=== PATIENT | male | born 1940 | race Caucasian/White ===

== ENCOUNTER → 2017-05-20 | Outpatient (CLI) | payer OTHER, BC ==
[~2017-05-20] MED LIST: ALT5 PO; AMLO-114 PO; ASCA500 PO; ASPCH81 PO; ATOR10TA88 PO; FRRG27 PO; METO50TA7 PO; OMEG10007 PO
[2017-05-20 12:39] LABS: ESTIMATED AVERAGE GLUCOSE 126 mg/dl; HA1C FLAG Normal (Normal)
[2017-05-20 12:46] LABS: BLOOD UREA NITROGEN 18 mg/dl (7-18); BUN/CREATININE RATIO 13.6 (10-20); CALCIUM 9.3 mg/dl (8.5-10.1); CARBON DIOXIDE 30 mmol/L (21-32); CHLORIDE 104 mmol/L (98-107); CHOLESTEROL 109 mg/dl (0-200); GLUCOSE 92 mg/dl (70-99); POTASSIUM 3.8 mmol/L (3.5-5.1); SODIUM 139 mmol/L (136-145); TRIGLYCERIDES 149 mg/dl (0-150); VERY LOW DENSITY LIPOPROT CALC 30 mg/dl
[2017-05-20 12:52] LABS: ALKALINE PHOSPHATASE 76 U/L (45-117); ALT/SGPT 24 U/L (12-78); AST/SGOT 18 U/L (15-37); CHOLESTEROL/HDL RATIO 2.9; HDL CHOLESTEROL 37 mg/dl; LDL CHOLESTEROL CALCULATED 42 mg/dl
== END | disposition home or self-care (01) ==
LOC: C.LAB 10:00
PROVIDERS: ATTEND Family Medicine
DX: E78.00 Pure hypercholesterolemia, unspecified (principal); I10 Essential (primary) hypertension; I25.10 Atherosclerotic heart disease of native coronary artery without angina pectoris; R73.03 Prediabetes

== ENCOUNTER → 2017-11-04 | Day surgery (SDC) | payer OTHER, BC ==
[2017-10-26 08:22] VITALS: Ht 177.8 cm; Wt 90.0 kg
[~2017-11-04] VITALS: Ht 177.8 cm; Wt 90.0 kg
[~2017-11-04] MED LIST changes: -ALT5 PO; -ASCA500 PO; -ASPCH81 PO; +ASPCH81X PO; +ATOR-24 PO; -ATOR10TA88 PO; -FRRG27 PO; +HYDR25TA4 PO; +LIDOCAINE HCL 2% 2 ML VIAL (20MG/ML) ONE; +METO25TA56 PO; -METO50TA7 PO; +MULT-1093 PO; +PROPOFOL IV EMULSION 10 MG/ML 20 ML VIAL IV ONE; +RAMI10CA PO; +SODIUM CHLORIDE 0.9% 500ML 500 ML IV ONE
--- NOTE | 2017-11-04 13:20 | Endo History and Physical ---
History & Physical Date of Service: Nov 04, 2017. Chief Complaint: screen, h/o polyps Referring Physician: Dr. Camara History of Present Illness 77 yo CM who presents for colonoscopy secondary to history of colon polyps. Past Surgical History Hx Cardiac Surgery: Yes (HEART CATH-1 STENT PLACED) Hx Internal Defibrillator: No Hx Pacemaker: No Hx Abdominal Surgery: No Hx of Implantable Prosthesis: No Hx Post-Op Nausea and Vomiting: No Hx Cancer Surgery: No Hx Thoracic Surgery: No Hx Orthopedic: No Hx Urinary Tract Surgery: No Family History Polyp Social History Smoking Status: Never Smoker Hx Substance Use: No Hx Alcohol Use: Yes (1 SMALL GLASS WINE DAILY) Allergies Coded Allergies: No Known Allergies (Verified , 11/04/17) Current Medications Reported Home Medications Medications Dose Route/Sig Max Daily Dose Days Date Category Centrum Silver 50+Men (Multiple Vitamins W/ Minerals) 1 Tab Tab 1 Tab PO QAM 10/26/17 Reported Perry-3 (Fish Oil) 1 Ea Cap 1 Cap PO QAM 10/26/17 Reported Aspirin Chewable (Aspirin) 81 Mg Chew 81 Mg PO QAM 10/26/17 Reported Lipitor (Atorvastatin Calcium) 40 Mg Tab 40 Mg PO QPM 10/26/17 Reported Hctz (Hydrochlorothiazide) 25 Mg Tab 25 Mg PO QAM 10/26/17 Reported Lopressor (Metoprolol Tartrate) 25 Mg Tab 25 Mg PO BID 10/26/17 Reported Ramipril 10 Mg Cap 1 Cap PO BID 10/26/17 Reported Norvasc (Amlodipine Besylate) 10 Mg Tab 10 Mg PO QAM 10/26/17 Reported Vital Signs Weight (Kilograms): 90 Height (Feet): 5 Height (Inches): 10 Date Time Temp Pulse Resp B/P (MAP) Pulse Ox O2 Delivery O2 Flow Rate FiO2 11/04/17 13:17 36.5 65 16 139/89 (106) 95 Room Air Physical Exam General Appearance: WD/WN, no apparent distress Respiratory/Chest: Auscultation: breath sounds normal Cardiovascular: Heart Auscultation: RRR Abdomen: Bowel Sounds: normal Inspection & Palpation: soft, non-distended, no tenderness, guarding & rebound Assessment and Plan Assessment: 77 yo CM who presents for colonoscopy secondary to history of colon polyps. Plan: Proceed with colonoscopy.
--- NOTE | 2017-11-04 13:58 | Discharge Instructions ---
Endoscopy Patient Instructions Date / Procedure(s) Performed Nov 04, 2017. Colonoscopy Allergy Information Coded Allergies: No Known Allergies (Verified , 11/04/17) Discharge Date / Findings Nov 04, 2017. Internal hemorrhoids Medication Instructions Stopped Medication(s): All meds stopped 11/03/17. OK to resume all medications today as prescribed Reported Home Medications Medications Dose Route/Sig Max Daily Dose Days Date Category Centrum Silver 50+Men (Multiple Vitamins W/ Minerals) 1 Tab Tab 1 Tab PO QAM 10/26/17 Reported Captiva-3 (Fish Oil) 1 Ea Cap 1 Cap PO QAM 10/26/17 Reported Aspirin Chewable (Aspirin) 81 Mg Chew 81 Mg PO QAM 10/26/17 Reported Lipitor (Atorvastatin Calcium) 40 Mg Tab 40 Mg PO QPM 10/26/17 Reported Hctz (Hydrochlorothiazide) 25 Mg Tab 25 Mg PO QAM 10/26/17 Reported Lopressor (Metoprolol Tartrate) 25 Mg Tab 25 Mg PO BID 10/26/17 Reported Ramipril 10 Mg Cap 1 Cap PO BID 10/26/17 Reported Norvasc (Amlodipine Besylate) 10 Mg Tab 10 Mg PO QAM 10/26/17 Reported Provider Instructions Activity Restrictions - No exercising or heavy lifting for 24 hours. - Do not drink alcohol the day of the procedure. - Do not drive a car or operate machinery until the day after the procedure. - Do not make any important decisions or sign important papers in 24 hours after the procedure. Following Day: - Return to full activity which may include returning to work/school. Diet Start your diet with liquids and light foods (jello, soup, juice, toast). Then eat your usual diet if not nauseated. Treatment For Common After Affects For mild abdominal pain, bloating, or excessive gas: - Rest - Eat lightly - Lie on right side Follow-Up Information Follow-up with Dr. Camara as scheduled Anesthesia Information What You Should Know You have had a procedure that required some medicine to reduce anxiety and discomfort. This treatment is called moderate sedation. After receiving the treatment, you may be sleepy, but you will be able to breathe on your own. The effects of the treatment may last for several hours. Follow these instructions along with Activity/Diet recommendations noted above: * Do NOT do anything where dizziness or clumsiness would be dangerous. * Rest quietly at home today, then you can be up and about tomorrow. * Have a responsible person stay with you the rest of today. * You may have had an I.V. today. If so, you may take the dressing off later today. Recommendations Call your doctor if: * Trouble breathing * Continuous vomiting for more than 24 hours * Temperature above 101 degrees * Severe abdominal pain or bloating * Pain not relieved by pain medicine ordered * There is increased drainage or redness from any incision * A large amount of rectal bleeding greater than 2-3 tablespoons. (If you had a polyp/s removed or have hemorrhoids, a small amount of blood - from the rectum is to be expected.) * You have any unanswered questions or concerns. IN THE EVENT OF A SERIOUS EMERGENCY, GO TO THE NEAREST EMERGENCY ROOM Your discharge instructions were prepared by provider Dar Jennings. Patient Instructions Signature Page Prem Orantes Patient (or Guardian) Signature/Date: I have read and understand the instructions given to me by my caregivers. Caregiver/RN/Doctor Signature/Date: The above-named patient and/or guardian has received patient instructions on this date. + Original Patient Signature Page (only) stays with chart. Please make copy for patient.
--- NOTE | 2017-11-04 14:10 | GI REPORT ---
Procedure Date: 11/04/2017 1:38 PM Procedure: Colonoscopy Indications: High risk colon cancer surveillance: Personal history of colonic polyps Medicines: Monitored Anesthesia Care Complications: No immediate complications. Estimated Blood Loss: Estimated blood loss: none. Procedure: Pre-Anesthesia Assessment: - Prior to the procedure, a History and Physical was performed, and patient medications and allergies were reviewed. The patient's tolerance of previous anesthesia was also reviewed. The risks and benefits of the procedure and the sedation options and risks were discussed with the patient. All questions were answered, and informed consent was obtained. Prior Anticoagulants: The patient has taken no previous anticoagulant or antiplatelet agents. ASA Grade Assessment: II - A patient with mild systemic disease. After reviewing the risks and benefits, the patient was deemed in satisfactory condition to undergo the procedure. After I obtained informed consent, the scope was passed under direct vision. Throughout the procedure, the patient's blood pressure, pulse, and oxygen saturations were monitored continuously. The scope was introduced through the anus and advanced to the terminal ileum. The colonoscopy was performed without difficulty. The patient tolerated the procedure well. The quality of the bowel preparation was good. The terminal ileum, ileocecal valve, appendiceal orifice, and rectum were photographed. Findings: The perianal and digital rectal examinations were normal. Non-bleeding internal hemorrhoids were found during retroflexion. The hemorrhoids were small. Impression: - Non-bleeding internal hemorrhoids. - No specimens collected. Recommendation: - Resume previous diet. - Continue present medications. - No repeat colonoscopy due to age and the absence of advanced adenomas. - Return to primary care physician as previously scheduled. Dar Jennings, 11/04/2017 2:09:59 PM This report has been signed electronically. Note Initiated On: 11/04/2017 1:38 PM I attest to the content of the Intraoperative Record and orders documented therein, exceptions below
[2017-11-04 14:28] VITALS: BP 124/76; PULSE 58; O2SAT 96
--- NOTE | 2017-11-04 14:38 | Anesthesiology Progress Note ---
Anesthesia Post Op Note Date & Time Nov 04, 2017 at 14:38 Vital Signs Pain Intensity: 0 Vital Signs Past 12 Hours Date Time Temp Pulse Resp B/P (MAP) Pulse Ox O2 Delivery O2 Flow Rate FiO2 11/04/17 14:28 58 18 124/76 (92) 96 Room Air 11/04/17 14:16 61 16 126/83 (97) 95 Room Air 11/04/17 14:01 58 20 107/71 (83) 96 Room Air 11/04/17 13:17 36.5 65 16 139/89 (106) 95 Room Air Notes Mental Status: alert / awake / arousable, participated in evaluation Pt Amnestic to Procedure: Yes Nausea / Vomiting: adequately controlled Pain: adequately controlled Airway Patency, RR, SpO2: stable & adequate BP & HR: stable & adequate Hydration State: stable & adequate Anesthetic Complications: no major complications apparent
== END | disposition home or self-care (01) ==
LOC: C.GI 12:41
PROVIDERS: ATTEND Internal Medicine
DX: Z12.11 Encounter for screening for malignant neoplasm of colon (principal); Z86.010 Personal history of colon polyps; K64.8 Other hemorrhoids; Z95.5 Presence of coronary angioplasty implant and graft; Z79.82 Long term (current) use of aspirin; Z79.899 Other long term (current) drug therapy

== ENCOUNTER → 2017-11-27 | Outpatient (CLI) | payer OTHER, BC ==
[~2017-11-27] MED LIST changes: -AMLO-114 PO; +AMLO10TA3 PO; -LIDOCAINE HCL 2% 2 ML VIAL (20MG/ML) ONE; -PROPOFOL IV EMULSION 10 MG/ML 20 ML VIAL IV ONE; -SODIUM CHLORIDE 0.9% 500ML 500 ML IV ONE
[2017-11-27 10:25] LABS: HEMOGLOBIN A1C 5.9 % (4.5-5.6)
[2017-11-27 10:47] LABS: BLOOD UREA NITROGEN 27 mg/dl (7-18); CREATININE 1.55 mg/dl (0.60-1.40); GLUCOSE 99 mg/dl (70-99)
[2017-11-27 10:48] LABS: ALBUMIN 3.9 gm/dl (3.4-5.0); ALT/SGPT 31 U/L (12-78); AST/SGOT 20 U/L (15-37); CALCIUM 9.3 mg/dl (8.5-10.1); CARBON DIOXIDE 32 mmol/L (21-32); POTASSIUM 3.8 mmol/L (3.5-5.1); SODIUM 138 mmol/L (136-145)
[2017-11-27 10:51] LABS: ALKALINE PHOSPHATASE 72 U/L (45-117); CHOLESTEROL 143 mg/dl (0-200); LDL CHOLESTEROL CALCULATED 59 mg/dl
== END | disposition home or self-care (01) ==
LOC: C.LAB 09:21
PROVIDERS: ATTEND Neuromusculoskeletal Medicine & OMM
DX: Z00.00 Encounter for general adult medical examination without abnormal findings (principal); E78.00 Pure hypercholesterolemia, unspecified; I10 Essential (primary) hypertension; R73.03 Prediabetes

== ENCOUNTER → 2018-01-29 | Outpatient (CLI) | payer OTHER, BC ==
[~2018-01-29] MED LIST changes: +AMLO-114 PO; -AMLO10TA3 PO
[2018-01-29 12:37] LABS: BLOOD UREA NITROGEN 24 mg/dl (7-18); CALCIUM 9.6 mg/dl (8.5-10.1); CARBON DIOXIDE 32 mmol/L (21-32); CREATININE 1.41 mg/dl (0.60-1.40); GLUCOSE 96 mg/dl (70-99); SODIUM 137 mmol/L (136-145)
== END | disposition home or self-care (01) ==
LOC: C.LAB 10:10
PROVIDERS: ATTEND Neuromusculoskeletal Medicine & OMM
DX: N18.3 Chronic kidney disease, stage 3 (moderate) (principal)

== ENCOUNTER 2025-01-16 04:59 | Observation (INO) ==
--- NOTE | 2024-12-15 10:42 | PAT Medication Instructions ---
Medication Instructions Date of Service December 15, 2024 Home Medications Medication Instructions Recorded CPAP Machine See Rx Instructions .Route 02/13/21 .COMPLEX #1 ea ramipril 10 mg capsule 10 mg PO BID #180 caps 10/28/23 atorvastatin 40 mg tablet 40 mg PO HS #90 tabs 12/09/23 amlodipine 5 mg tablet 5 mg PO QAM #90 tabs 03/09/24 epinephrine 0.3 mg/0.3 mL 0.3 mg (0.3 mL) IM ONCE PRN 03/14/24 injection, auto-injector anaphylaxis #2 ea nitroglycerin 0.4 mg sublingual 0.4 mg sublingual Q5M PRN chest 03/14/24 tablet pain #25 tabs hydrochlorothiazide 25 mg tablet 25 mg PO QAM #90 tabs 09/21/24 metoprolol tartrate 25 mg tablet 25 mg PO BID #180 tabs 09/29/24 Medication List: omega-3 fatty acids 1,200 mg PO BID ramipril 10 mg capsule 10 mg PO BID atorvastatin 40 mg tablet 40 mg PO HS aspirin 81 mg tablet,delayed release (Juliette Low Dose Aspirin) 81 mg PO QAM amlodipine 5 mg tablet 5 mg PO QAM epinephrine 0.3 mg/0.3 mL injection, auto-injector 0.3 mg (0.3 mL) IM ONCE PRN anaphylaxis nitroglycerin 0.4 mg sublingual tablet 0.4 mg sublingual Q5M PRN chest pain hydrochlorothiazide 25 mg tablet 25 mg PO QAM metoprolol tartrate 25 mg tablet 25 mg PO BID amoxicillin 500 mg tablet 2,000 mg PO ONCE PRN prior to dental procedures itvevykttnch-vnqlowas-opwvpj tablet 1 tab PO QAM MEDICATION INSTRUCTIONS: Continue as directed amoxicillin 500 mg tablet 2,000 mg PO ONCE PRN prior to dental procedures epinephrine 0.3 mg/0.3 mL injection, auto-injector 0.3 mg (0.3 mL) IM ONCE PRN anaphylaxis nitroglycerin 0.4 mg sublingual tablet 0.4 mg sublingual Q5M PRN chest pain ASK your prescriber and surgeon aspirin 81 mg tablet,delayed release (Juliette Low Dose Aspirin) 81 mg PO QAM STOP taking 2 weeks before surgery omega-3 fatty acids 1,200 mg PO BID DO NOT take the morning of surgery hydrochlorothiazide 25 mg tablet 25 mg PO QAM xgniqsblluho-aoceaiuf-evyxdo tablet 1 tab PO QAM ramipril 10 mg capsule 10 mg PO BID Take morning of surgery With a small sip of water, OTHERWISE NOTHING TO EAT OR DRINK AFTER MIDNIGHT: metoprolol tartrate 25 mg tablet 25 mg PO BID amlodipine 5 mg tablet 5 mg PO QAM Take evening before surgery metoprolol tartrate 25 mg tablet 25 mg PO BID atorvastatin 40 mg tablet 40 mg PO HS ramipril 10 mg capsule 10 mg PO BID Other Notes If you have any questions please call us at [phone] or [phone] or [phone] or [phone]
--- NOTE | 2024-12-26 09:16 | Anesthesiology Consultation ---
Date of Service December 26, 2024 Assessment & Plan (1) Encounter for pre-operative examination: - Infectious disease screening: Per assessment on 12/26/24- No known recent infectious disease contacts or current infectious disease symptoms. - Outpatient joint assessment: Pt currently scheduled for inpatient pathway. If surgeon requests review for outpatient joint pathway, patient is not recommended candidate for outpatient joint program from anesthesia standpoint based on available information. - Cardiology visit (02/25/24): "CAD status post LAD PCI: No angina. Euvolemic. Continue aspirin 81 mg daily indefinitely, given prior PCI. Continue beta- yasmin. Continue high-intensity statin therapy. 911 for angina that does not resolve within 5 minutes of nitroglycerin. CBC periodically while on anti- platelet therapy.. Blood pressure higher today than usual. Blood pressure typically very well-controlled. Continue current regimen. Encouraged checking blood pressure periodically at home and calling for higher than usual values.. Dyslipidemia: Continue high-intensity statin therapy. Excellent LDL. Repeat labs in 6 months.. Paroxysmal atrial tachycardia: Asymptomatic. In the past, [facility] discharge summary reported paroxysmal atrial tachycardia. Initially it was thought to be atrial fibrillation but after further review by hemmer chainstitch at [facility] [place], atrial tachycardia was diagnosed. Sotalol was used briefly. Continue metoprolol.. Borderline dilated ascending aorta: His ascending aorta was within expected limits for age adjusted BSA. Stable findings on 2022 echo. Can monitor periodically but annual surveillance is not necessary given that he consistently has been within expected limits for age adjusted BSA." - PCP/wellness visit (10/31/24): "1. Medicare wellness: No major issues at this time. Metabolic screening reviewed, unremarkable. See repeat orders. Follow- up in 6 months for regular checkup, 1 year for Medicare wellness.. Pre diabetes: Patient advised to follow a carbohydrate restricted diet with limitations on simple sugars and refined carbohydrates in addition to increasing dietary intake of lean proteins and mild to moderate intake of whole grains. No change in A1c. Pharmacotherapy not indicated at this time.. Severe sleep apnea with hypoxemia: On CPAP, managed by Sleep Medicine.. Hypercholesterolemia: Continue atorvastatin and fish oil. See dietary recommendations above.. Hypertension: Currently at goal. Continue amlodipine, hydrochlorothiazide, metoprolol, and ramipril. Otherwise maintain current regimen.. Stage 3 chronic kidney disease: Renal function currently at baseline, no issues at this time.. 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 - Anemia: Preop labs note hgb at 11.9. Comparison labs from 10/31/24 with hgb at 14.2. Note written to PCP regarding anemia- Awaiting response. Patient otherwise acceptable risk for surgery. Chart Review Chart Review: Patient seen in Pre Admission Testing Teaching & Discussion Pre-Anesthesia Teaching/Discussion Notes: Instructed NPO after midnight before surgery,except medications with 15 cc of water. Medication instructions provided according to the PAT guidelines. History Surgery Operation Date: 01/16/25 08:50 Proposed Procedures p Right Unicompartmental Knee Vs - Kody Lorenz MD s Total Knee Arthroplasty - Kody Lorenz MD Height/Weight Height: 5 ft 9 in Weight: 99.5 kg Allergies Allergy/AdvReac Type Severity Reaction Status Date / Time bee venom protein (honey bee) Allergy Severe Anaphylaxis Verified 12/13/24 15:34 hornet venom Allergy Severe Anaphylaxis Verified 12/13/24 15:34 No Known Drug Allergies Allergy Verified 12/13/24 15:34 Medications Home Medications Medication Instructions Recorded Confirmed Last Taken CPAP Machine See Rx Instructions .Route 02/13/21 11/10/24 08/16/23 20:00 .COMPLEX #1 ea omega-3 fatty acids 1,200 mg PO BID 08/03/23 12/13/24 08/03/23 aspirin 81 mg tablet,delayed 81 mg PO QAM 01/25/24 12/13/24 Unknown release (Juliette Low Dose Aspirin) amlodipine 5 mg tablet 5 mg PO QAM #90 tabs 03/09/24 12/13/24 Unknown epinephrine 0.3 mg/0.3 mL 0.3 mg (0.3 mL) IM ONCE PRN 03/14/24 12/13/24 Unknown injection, auto-injector anaphylaxis #2 ea nitroglycerin 0.4 mg sublingual 0.4 mg sublingual Q5M PRN chest 03/14/24 12/13/24 Unknown tablet pain #25 tabs hydrochlorothiazide 25 mg tablet 25 mg PO QAM #90 tabs 09/21/24 12/13/24 Unknown metoprolol tartrate 25 mg tablet 25 mg PO BID #180 tabs 09/29/24 12/13/24 Unknown amoxicillin 500 mg tablet 2,000 mg PO ONCE PRN prior to 12/13/24 12/13/24 Unknown dental proceures mhidyahnqqzo-ekrpgxkt-uxkvqn tablet 1 tab PO QAM 12/13/24 12/13/24 Unknown ramipril 10 mg capsule 10 mg PO BID #180 caps 12/20/24 Unknown atorvastatin 40 mg tablet 40 mg PO HS #90 tabs 12/24/24 Unknown Past Medical History Medical History CAD (coronary artery disease) s/p BMS to LAD 2010 Hypercholesterolemia Hypertension Nocturnal hypoxemia Per records Osteoarthritis Paroxysmal atrial tachycardia Asymptomatic- on metoprolol Follows with [facility] Pre-diabetes Diet controlled Seborrheic keratosis Sleep apnea CPAP (compliant) Stage 3 chronic kidney disease Exercise / Class Metabolic Activity II 4-5 Yardwork/Stairs/Walk up hill (one FS: No CP, no SOB) Past Family History Family History Father Acute myocardial infarction Myocardial infarction Mother Diabetes Acute myocardial infarction Kidney disease Stroke Grandmother Breast cancer Brother Lung cancer Sister Cancer Other No family history of adverse response to anesthesia Denies family history of Ovarian cancer Prostate cancer Colorectal cancer Past Surgical History Surgical History H/O colonoscopy History of cardiac cath BMS to LAD 2010 History of intravascular stent placement BMS to LAD 2010 History of tonsillectomy and adenoidectomy S/P cataract surgery Status post left partial knee replacement Past Anesthesia History No Hx of Anesthesia Complications and No Family Hx of Anesthesia Complications History of PONV No Hx of PONV and No Hx of Motion Sickness Social History Smoking Status: Never smoker Do You Dip or Chew Tobacco: No Hx Alcohol Use: Yes (1 glass of wine a week) Alcohol type: beer and wine alcohol intake frequency: a few times a month Hx Substance Use: No substance use type: does not use Review of Systems Patient denies chest pain, shortness of breath, dyspnea on exertion, fever, chills, cough, wheezing, palpitations. Physical Exam Vital Signs BP 103/67 P 54 TEMP 97.7 SP02 97%RA RESP 18 Physical Decreased cervical extension range of motion. Full TMJ range of motion. TMD > 3.5 finger breaths Mallampati Score IV (small oral opening) Dentition: missing molars, + several crowns Lungs: clear throughout to auscultation Cardiac: regular rate and rhythm, no murmurs noted Spine: normal Carotid arteries: negative bruit Extremities: no LE edema Short neck Lab Results Anesthesia Preop Results Results Anesthesia Widget: WBC 7.26 K/ul (4.8-10.8) 12/26/24 Hgb 11.9 g/dl (14.0-18.0) L 12/26/24 Hct 34.0 % (42.0-52.0) L 12/26/24 Plt 265 K/uL (130-400) 12/26/24 Na 137 mmol/L (136-145) 12/26/24 K 3.4 mmol/L (3.5-5.1) L 12/26/24 Cl 100 mmol/L (98-107) 12/26/24 CO2 29 mmol/L (21-32) 12/26/24 BUN 19 mg/dl (6-23) 12/26/24 Creat 1.15 mg/dl (0.6-1.4) 12/26/24 Glucose Level 104 mg/dl (70-99(Fasting)) H 12/26/24 PT 11.1 Seconds (9.0-12.0) 12/26/24 PTT 29 Seconds (21-31) 12/26/24 INR 1.0 (0.9-1.1) 12/26/24 HA1c 6.3 % (4.5-5.6) H 12/26/24 Blood Type O Negative 12/26/24 Antibody Screen NEGATIVE 12/26/24 Testing Electrocardiogram Date: 12/26/24 SB with first degree AVB at 55bpm. Diffuse minor NS STA. No significant change compared to 08/05/2023 per advertising consultant comparison. Chest X-Ray Date: 12/26/24 FINDINGS: Heart size and pulmonary vasculature are normal. No effusion or consolidation. IMPRESSION: No acute findings. Echocardiogram Date: 01/28/23 EF: 60-65% LV Function: normal RWMA: + none Other Findings: + LVH (Mild to moderate/concentric); no diastolic dysfunction Valvular Disease: + no significant valvular disease Normal ascending aorta size for age adjusted PSA No significant change from prior study on 06/23/2022.
--- NOTE | 2025-01-14 09:22 | History & Physical Report ---
Date of Service January 14, 2025 Assessment & Plan (1) Right knee DJD: 84-year-old relatively healthy gentleman with multiple medical comorbidities 16 months out from a left partial knee replacement with advanced right knee medial compartment DJD. He has failed conservative treatment. Very happy with the le ft knee and would like to have a similar procedure done on the right. Plan we talked about treatment. Work on proceed with a right partial knee replacement. If we get in there and it is too bad we will do a full knee replacement. There is cements of partial versus total knee replacement were explained and patient understands and desires to proceed. Informed consent is obtained. Patient does have a history of cardiac stent placement at [facility] but no overall symptoms cardiac otero at this time. He is planning on being discharged to home with some home health and his 's assistance. Will use aspirin for DVT prophylaxis. (2) Status post left partial knee replacement: (3) Severe sleep apnea: (4) CAD (coronary artery disease): (5) Stage 3 chronic kidney disease: (6) Pre-diabetes: (7) Hypertension: (8) Hypercholesterolemia: History of Present Illness Chief Complaint: . Persistent right medial knee pain and discomfort. Primary Care Provider: Devin Dodson DO . The patient is an 84-year-old gentleman who presents now for surgical treatment of his right knee. He is 16 months out from a left partial knee replacement and done well from this. He continues to be bothered by right medial knee pain discomfort. Has had injections which have become less successful over time. Pains all medial. Very happy with his left knee and would like to have a similar procedure done on the right side. Gets occasional catching or locking. No groin pain. Allergies Allergy/AdvReac Type Severity Reaction Status Date / Time bee venom protein (honey bee) Allergy Severe Anaphylaxis Verified 12/13/24 15:34 hornet venom Allergy Severe Anaphylaxis Verified 12/13/24 15:34 No Known Drug Allergies Allergy Verified 12/13/24 15:34 Home Medications Medication Instructions Recorded Confirmed Type CPAP Machine See Rx Instructions .Route 02/13/21 11/10/24 Rx .COMPLEX #1 ea omega-3 fatty acids 1,200 mg PO BID 08/03/23 12/13/24 History aspirin 81 mg tablet,delayed 81 mg PO QAM 01/25/24 12/13/24 History release (Juliette Low Dose Aspirin) amlodipine 5 mg tablet 5 mg PO QAM #90 tabs 03/09/24 12/13/24 Rx epinephrine 0.3 mg/0.3 mL 0.3 mg (0.3 mL) IM ONCE PRN 03/14/24 12/13/24 Rx injection, auto-injector anaphylaxis #2 ea nitroglycerin 0.4 mg sublingual 0.4 mg sublingual Q5M PRN chest 03/14/24 12/13/24 Rx tablet pain #25 tabs hydrochlorothiazide 25 mg tablet 25 mg PO QAM #90 tabs 09/21/24 12/13/24 Rx metoprolol tartrate 25 mg tablet 25 mg PO BID #180 tabs 09/29/24 12/13/24 Rx amoxicillin 500 mg tablet 2,000 mg PO ONCE PRN prior to 12/13/24 12/13/24 History dental proceures sljboezugwoh-bfnlyboe-suuaip tablet 1 tab PO QAM 12/13/24 12/13/24 History ramipril 10 mg capsule 10 mg PO BID #180 caps 12/20/24 Rx atorvastatin 40 mg tablet 40 mg PO HS #90 tabs 12/24/24 Rx Past Med/Surg History Problem List Right knee DJD Hip bursitis, left Encounter for pre-operative examination Left knee DJD Severe sleep apnea CAD (coronary artery disease) (Acute) Paroxysmal atrial tachycardia (Acute) Stage 3 chronic kidney disease Pre-diabetes Hypertension Hypercholesterolemia Medical History Nocturnal hypoxemia Per records Osteoarthritis Paroxysmal atrial tachycardia Asymptomatic- on metoprolol Follows with [facility] Hypercholesterolemia CAD (coronary artery disease) s/p BMS to LAD 2010 Stage 3 chronic kidney disease Pre-diabetes Diet controlled Sleep apnea CPAP (compliant) Seborrheic keratosis Hypertension Surgical History History of cardiac cath BMS to LAD 2010 S/P cataract surgery Status post left partial knee replacement History of tonsillectomy and adenoidectomy H/O colonoscopy History of intravascular stent placement BMS to LAD 2010 Family History Father Acute myocardial infarction Myocardial infarction Mother Diabetes Acute myocardial infarction Kidney disease Stroke Grandmother Breast cancer Brother Lung cancer Sister Cancer Other No family history of adverse response to anesthesia Denies family history of Ovarian cancer Prostate cancer Colorectal cancer Social History Smoking Status: Never smoker Second Hand Exposure: No; Do You Dip or Chew Tobacco: No; Tobacco Cessation Education Requested by Patient: No Hx Alcohol Use: Yes (1 glass of wine a week) Alcohol type: beer and wine Alcohol Intake Frequency: 2-3 x/Week Hx Substance Use: No Preferred Language: Haitian Communication Ability: Effective Visual Impairment: No Limitations Hearing Ability: Normal 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 Beliefs That Will Affect Care: None marital status: Current Living Situation: Spouse current occupational status: retired How many Children do You have: 3 Other Information That Helps Us Care for You: No Feels Safe at Home: Yes Safety Concerns: Feels Safe At This Time Childhood Exposure to Second-Hand Smoke: No Diet: regular caffeine: No during the past year weight has: remained stable Dental Care, Regularly: Yes Physical Activity Frequency: Daily Seatbelt Use: always Sunscreen Use: Yes Assistive Devices: CPAP and Glasses Assistive Devices Comment: reading glasses Review of Systems All systems reviewed & are unremarkable except as noted in HPI & below. Physical Exam . Physical examination reveals a pleasant middle-aged elderly gentleman. Looks to be in pretty good health. Examination of his knees reveal patient ambulates independently. Examination of the right knee reveals a varus alignment. He is tender with medial joint line. Small knee effusion. Range of motion is near full extension oh 125 degrees of flexion. There is no instability. No particular pain with hip motion. Examination left knee reveals well-healed incision. Slight varus alignment to the knee. No knee effusion. Range of motion 0-1 25. No instability. Constitutional WD/WN, vitals as above Respiratory normal respiratory effort, lungs clear to auscultation Cardiovascular RRR, no murmur, no edema Gastrointestinal (Abdomen) normal bowel sounds, soft, nontender, no hepatosplenomegaly Results & Data Results & Data Laboratory Results . X-rays of the right knee reviewed. Shows advanced right knee medial compartment DJD. There is got complete loss of medial joint space. A little bit of chondrocalcinosis. The rest the knee looks pretty good. The left partial knee replacement looks to be in good position without problems. The tibia may be just a little bit undersized. Diagnostic Findings . PG Care Time/CCT Total # of Minutes Spent Total Time Spent with Patient: Total time spent is greater than 50% in coordination of care (as documented) at patient's floor/unit and/or counseling patient: Coding Level of Care Code None Diagnoses Right knee DJD M17.11 Status post left partial knee replacement Z96.652 Severe sleep apnea G47.30 CAD (coronary artery disease) I25.10 Stage 3 chronic kidney disease N18.3 Pre-diabetes R73.03 Hypertension I10 Hypercholesterolemia E78.00
[2025-01-16] MEDS: LR 500ML BOLUS, THEN 15ML/HR IV SCH (05:50)
[2025-01-16] MEDS: LR 60ML/HR IV SCH (05:50)
[2025-01-16] MEDS: FAMOTIDINE 20 MG TAB PO SCH (05:56)
[2025-01-16] MEDS: ACETAMINOPHEN 500 MG TAB PO SCH ×2 (05:56→14:48)
[2025-01-16] MEDS: dexAMETHasone**PF** 10 MG/ML VIAL IV SCH (05:56)
[2025-01-16] MEDS: METOCLOPRAMIDE HCL 10 MG TABLET PO SCH (05:56)
[2025-01-16] MEDS: CeleBREX 200 MG CAP PO SCH (05:56)
[2025-01-16] MEDS ORDERED: BUPIVACAINE 0.5 % 5 MG/1 ML PF 10ML VIAL ONE (06:27)
[2025-01-16] MEDS ORDERED: BUPIVACAINE 0.25% PF 30 ML VIAL ONE (06:27)
[2025-01-16] MEDS ORDERED: PROPOFOL IV EMULSION 10 MG/ML 20 ML VIAL IV ONE ×2 (06:42→08:19)
[2025-01-16] MEDS ORDERED: DexMEDEtomidine HCL IV 100 MCG/ML VIAL IV ONE (06:42)
[2025-01-16] MEDS ORDERED: fentaNYL citrate PF 100 MCG/2 ML VIAL ONE (06:42)
--- NOTE | 2025-01-16 06:44 | History & Physical Bridge Note ---
Date of Service January 16, 2025 History & Physical Bridge Note I have examined the patient, reviewed the History & Physical and in the interval since the performance of the History & Physical I have noted the following changes of clinical significance: no changes noted
[2025-01-16] MEDS ORDERED: ePHEDrine sulfate 50 MG/ML AMP IV PRN (07:00)
[2025-01-16] MEDS: ceFAZolin 2000MG 2,000 MG/15 ML SYR IV SCH ×2 (07:00→16:20)
[2025-01-16] MEDS ORDERED: ONDANSETRON INJ 2 MG/ML 2 ML VIAL IV PRN ×2 (07:00→10:36)
[2025-01-16] MEDS ORDERED: ATROPINE SULFATE 0.1 MG/ML 10ML SYR IV PRN (07:00)
[2025-01-16] MEDS ORDERED: fentaNYL citrate PF 100 MCG/2 ML VIAL IV PRN (07:00)
[2025-01-16] MEDS ORDERED: ePHEDrine sulfate 50 MG/ML AMP ONE ×2 (07:06→07:15)
[2025-01-16] MEDS ORDERED: LIDOCAINE 2% 2 ML VIAL/AMP(20MG/ML) INFIL ONE (07:06)
[2025-01-16] MEDS: ORTHO JOINT ANESTHETIC ONE (07:33)
[2025-01-16] MEDS: ROPIV 0.5% 246mg, Ketorolac 30mg, EPINEPHrine 0.5mg in NSS INFIL SCH (08:19)
[2025-01-16] MEDS: TRANEXAMIC ACID 1,000 MG **IV Intra-op IV SCH (08:33)
--- NOTE | 2025-01-16 09:02 | Operative Report ---
PG Post Operative Report Pre & Post Diagnosis Operation Date: 01/16/25 07:00 Pre-Op Diagnosis: Right Knee Osteoarthritis Post-Op Diagnosis: Right Knee Osteoarthritis I identified the patient and participated in the time-out.: Yes Procedure Operation Date: 01/16/25 07:00 Actual Procedures p Right Unicompartmental Knee Arthroplasty(Right) - Kody Lorenz MD Surgeon Kody Lorenz MD Manager Intensive Care Unit Artur Montano PA-C Estimated Blood Loss 25 Findings Consistent with Post-Op Diagnosis Operative findings revealed advanced medial compartment arthritis with full- thickness cartilage loss medially. He did not have much in the way of eburnation at all or osteophyte formation. Remainder of his knees look pretty well-preserved. He did have a small to moderate-sized knee joint effusion. There is no instability. ACL was intact. Specimens Right knee sent for pathology. Anesthesia Type Spinal MAC Complications none Disposition Accompanied Patient To Recovery: No Indications Patient is an 84-year-old gentleman whose had a several year history of increasing bilateral knee pain discomfort. He has been through extensive conservative treatment. He had a left partial knee replacement about a year and a half ago and is done well from this. He continued be bothered by right medial knee pain and discomfort. X-ray showed moderate to advanced medial compartment arthritis. Failed conservative measures and elected proceed with right partial knee replacement. Description of Procedure Operative implants consist of: 1 Biomet [place] medium femoral component. 2. Biomet [place] right medial size E tibial tray. 3. 4 mm mobile-bearing polyethylene insert. The patient was taken the op room, identified, placed on the operating table in the supine position. All conductors were appropriately padded. IV antibiotics fibra anesthesia team. A spinal anesthetic and adductor canal block had been [place] in the holding area. Right thigh tent was then placed. The right lower extremity was then prepped and draped in usual sterile fashion. The right leg was elevated and exsanguinated with use of an Esmarch and a turn was placed at 300 mmHg. An anterior approach to the right knee was then performed through a longitudinal incision beginning at the superior pole of the patella and extending just medial to the tibial tubercle. Sharp dissection was Through subcutaneous tissue down the extensor mechanism. A medial parapatellar arthrotomy incision was made. Some subperiosteal dissection was carried out medially. The fat pad was resected from Neath patella tendon. Great care was taken throughout the procedure to protect the MCL at all times. I then examined the knee. The ACL was intact. The lateral and patellofemoral compartments are fairly well-preserved. We elected proceed with a partial knee replacement. The osteophytes taken off the intercondylar notch area. The femur was sized to a size medium. The medium spoon was placed. The external tibial alignment jig was then placed on the anterior face the tibia and adjusted and attached to the medium spoon with a 4G clamp. The tibial tray was pinned in position. The proximal tibial cut was made. The tibia was then sized to a size E. Attention drawn the femur. The distal femur then with a sharp drill. The IM diogo was placed. The medium femoral cutting guide was placed and pinned in place. The posterior cut was made. The 0 spigot was used to milled the distal femur and the distal femur is milled. I then resected the medial meniscus. We then trialed the knee and the 4 feeler gauge felt good in flexion and the 1 in extension. We then used the 3 spigot and milled the distal femur. We then trialed the knee again and the 4 feeler gauge fit appropriately in flexion and extension. We elect to place these implants. The distal femoral preparation guide was placed in the posterior osteophyte was removed. The anterior milling device was used to create the space for the fe moral component. The tibial tray was pinned in place. The toothbrush blade saw was used to create the keel defect for the tibial tray. We then trialed the knee again and the 4 insert fit appropriately. All trial implants were removed. We irrigated extensively. A single batch [place] G cement was mixed. Right medial size D tibial tray was cemented in place followed by a medium femoral component. The 4 feeler gauge was placed in the knee was brought out and about 30 degrees short of full extension till cement hardened. Final cement check was then performed. We trialed the knee 1 more time and elected to place a 4 insert. 4 mm insert was placed. I injected locally with a total of 100 cc of Ortho mix. The patient did receive 1 g tranexamic acid. The tourniquet was then let down for final tourniquet time 68 minutes. Hemostasis surgeries electrocautery. Extensor Metros then closed with #1 Vicryl suture in a [id number] fashion. Extensor Meclomen checked found to be intact with subcutaneous tissue then closed with 2 Dexon suture in a buried interrupted fashion skin was closed with skin daniel. Leg was then cleaned and dried and sterile dressed with Xeroform, 4 fours, sterile cast padding, Herberth bandage were applied. The patient was then transferred to the recovery room in stable condition. The patient tolerated procedure well and there were no complications. Artur Montano, my physician assistant accounting manager, was present for the entire procedure. His assistance was essential and required for appropriate patient positioning, prepping and draping, surgical exposure, performing the technical details of the operation, placement the implants, closure of the wound, and placement of the sterile bandage. I attest to the content of the Intraoperative Record and any orders documented therein. Any exceptions are noted below.
--- NOTE | 2025-01-16 09:44 | XRay Report ---
XR knee RT 1 or 2V routine CLINICAL HISTORY: Surgical Post Op COMPARISON: None FINDINGS: Right knee medial hemiprosthesis shows no hardware complication. There is expected soft ti ssue gas. Skin daniel are present. IMPRESSION: Unremarkable postoperative exam. ACT 112: Negative or not required by law. Electronically signed by: Chalo Berry M.D. 01/16/2025 9:42 AM
[2025-01-16] MEDS ORDERED: NON-FORMULARY MEDICATION (Multivitamin-Minerals-Lutein Tablet) PO SCH (10:36)
[2025-01-16] MEDS ORDERED: SENNA 8.6 MG TAB PO SCH (10:36)
[2025-01-16] MEDS ORDERED: NITROGLYCERIN SL 0.4 MG/TAB TAB SL PRN (10:36)
[2025-01-16] MEDS ORDERED: EPINEPHrine ADULT AUTO-INJECT 0.3 MG SYR IM PRN (10:36)
[2025-01-16] MEDS ORDERED: ALUMINUM/MAGNESIUM SUSP 30 ML UDC PO PRN (10:36)
[2025-01-16] MEDS ORDERED: bisacodyL 10 MG SUPP PR PRN (10:36)
[2025-01-16] MEDS ORDERED: PHARMACY GLYCEMIC MGMT CONSULT PRN (10:36)
[2025-01-16] MEDS ORDERED: GLUCOSE 40% GEL 15 GM TUBE PO PRN (10:36)
[2025-01-16] MEDS ORDERED: DEXTROSE 50% 50 ML SYRINGE IV PRN (10:36)
[2025-01-16] MEDS ORDERED: GLUCOSE 10 TAB/TUBE PO PRN (10:36)
[2025-01-16] MEDS ORDERED: METOCLOPRAMIDE HCL INJ 5 MG/ML 2 ML VIAL IV PRN (10:36)
[2025-01-16] MEDS ORDERED: NO NSAIDS SCH (10:36)
[2025-01-16] MEDS ORDERED: CARBOHYDRATES FOR HYPOGLYCEMIA PO PRN (10:36)
[2025-01-16] MEDS ORDERED: MAGNESIUM HYDROXIDE SUSP 30 ML UDC PO PRN (10:36)
[2025-01-16] MEDS ORDERED: traMADol HCL 50 MG TABLET PO PRN (10:36)
[2025-01-16] MEDS ORDERED: HYDROmorphone INJ 0.5 MG/0.5 ML SYR IV PRN (10:36)
[2025-01-16] MEDS ORDERED: NON-FORMULARY MEDICATION (Cpap Machine misc) SCH (10:36)
[2025-01-16] MEDS ORDERED: NALOXONE HCL 0.4 MG/1 ML VIAL/CARP IV PRN (10:36)
[2025-01-16] MEDS ORDERED: GLUCAGON FOR INJ 1 MG VIAL SQ PRN (10:36)
[2025-01-16] MEDS: ENALAPRIL MALEATE 10 MG TAB PO SCH (12:31)
[2025-01-16] MEDS: DOCUSATE SODIUM 100 MG CAP PO SCH (12:31)
[2025-01-16] MEDS: OMEGA-3 (PURIFIED FISH OIL) 1 GM CAP PO SCH (12:31)
[2025-01-16] MEDS: hydroCHLOROthiazide 25 MG TAB PO SCH (12:31)
[2025-01-16] MEDS: amLODIPine BESYLATE 5 MG TAB PO SCH (12:31)
[2025-01-16] MEDS: MULTIVITAMIN TAB PO SCH (12:32)
[2025-01-16] MEDS: ASPIRIN 81 MG ECTAB PO SCH (12:32)
[2025-01-16] MEDS: METOPROLOL TARTRATE 25 MG TAB PO SCH (12:32)
[2025-01-16] MEDS: TAMSULOSIN HCL 0.4 MG CAP PO SCH (12:32)
[2025-01-16] MEDS: INSULIN ASPART PER UNIT CHARGE SC SCH (13:32)
--- NOTE | 2025-01-16 13:57 | Anesthesiology Progress Note ---
Date of Service January 16, 2025 Anesthesia Post Procedure Vital Signs Vital Signs: Temp Pulse Pulse Resp BP Pulse Ox O2 Del Method 01/16/25 11:40 36.4 C L 95 H 20 138/69 92 Room Air 01/16/25 10:44 36.3 C L 82 18 107/63 94 Room Air 01/16/25 10:10 36.4 C L 77 16 111/57 L 94 Nasal Cannula 01/16/25 09:55 36.4 C L 70 19 101/57 L 93 Nasal Cannula 01/16/25 09:45 75 15 97/53 L 94 Nasal Cannula 01/16/25 09:35 68 15 101/55 L 93 Nasal Cannula 01/16/25 09:25 72 16 96/55 L 93 Nasal Cannula 01/16/25 09:15 69 16 108/59 L 92 Nasal Cannula 01/16/25 09:05 68 14 102/67 96 Oxymask 01/16/25 08:57 36.3 C L 71 16 104/56 L 94 Oxymask 01/16/25 05:30 36.5 C 60 20 119/74 93 Room Air, CPAP O2 Flow Rate 01/16/25 11:40 01/16/25 10:44 01/16/25 10:10 2 01/16/25 09:55 2 01/16/25 09:45 2 01/16/25 09:35 2 01/16/25 09:25 2 01/16/25 09:15 2 01/16/25 09:05 4 01/16/25 08:57 6 01/16/25 05:30 Pain Intensity Right Knee: Pain Intensity: 0 Transfer of Care Handoff Completed per policy Notes Mental Status: alert / awake / arousable Patient Amnestic to Procedure: Yes Nausea / Vomiting: adequately controlled Pain: adequately controlled Airway Patency, RR, SpO2: stable & adequate BP & HR: stable & adequate Hydration State: stable & adequate Neuraxial Anesthesia: was administered and sensory block is resolving Anesthetic Complications: no major complications apparent and Pt Satisfied with anesthetic care
--- NOTE | 2025-01-16 14:13 | Pharmacy Report ---
Pharmacy Glycemic Short Note 2 - Date of Service January 16, 2025 - Glycemic Short BSG Results (Last 24 hours): 01/16/25 10:43 POC Glucose 160 H OUTPATIENT ANTIDIABETIC REGIMEN: * N/A HbA1c: 6.3% on 12-26-24 ASSESSMENT: * 84 year old male admitted for right knee arthroplasty (POD #0). Patient noted to be a diet controlled pre-diabetic. Pharmacy has been consulted for glycemic management postop. * BSG was 160mg/dL this morning. He did receive 10mg iv dexamethasone. Will not start Lantus at this time as his BSGs are well controlled at home without medication. Will consider adding if his BSGs do continue to rise in the presence of steroids. * A weight based bolus insulin regimen with a stress between 1 and 2 has been started. Will follow and tighten parameters as needed. PLAN FOR INPATIENT GLYCEMIC CONTROL: * Basal insulin * hold * Bolus insulin * NovoLog per scale ACHS or Q6hrs while NPO * Goal Range: Low 120 mg/dL - High 150 mg/dL * Correction Factor: 45 mg/dL/unit * Nutritional / Prandial insulin per carb ratio of 1 unit per 20 grams CHO consumed
[2025-01-16] MEDS: TRANEXAMIC ACID / 0.7% NACL 1,000 MG/100 ML BAG IV SCH (14:49)
[2025-01-16] MEDS: ASCORBIC ACID 500 MG TAB PO SCH (17:29)
[2025-01-16 19:22] VITALS: RESP 18
[2025-01-16] MEDS: ATORVASTATIN 40 MG TAB PO SCH (21:36)
[2025-01-16] MEDS: SENNA 8.6 MG TAB PO SCH (21:37)
[2025-01-17 03:44] VITALS: BP 114/58
[2025-01-17 07:32] VITALS: TEMP 97.3; O2SAT 93
[2025-01-17 08:04] LABS: Hematocrit (blood only) 32.4 % (42.0-52.0); Hemoglobin 11.6 g/dl (14.0-18.0); Mean Corpuscular Hemoglobin 31.9 pg (25.0-34.0); Mean Corpuscular Hgb Conc 35.8 g/dL (32.0-36.0); Mean Platelet Volume 8.9 fL (9.4-12.4); Platelet Count 268 K/uL (130-400); RDW Coefficient of Variation 13.9 % (11.5-14.5); RDW Standard Deviation 45.1 fL (36.4-46.3); Red Blood Count 3.64 M/uL (4.70-6.10); White Blood Count 14.51 K/ul (4.8-10.8)
[2025-01-17 08:23] LABS: BUN Creatinine Ratio 22.6 (10-20); Calcium 8.5 mg/dl (8.6-10.3); Creatinine Clr Calc Pharmacy 46.1 ml/min; Potassium 3.7 mmol/L (3.5-5.1)
[2025-01-17] MEDS: dexAMETHasone 10 MG in SYRINGE 0 ML IV SCH (09:16)
[2025-01-17 09:48] VITALS: PULSE 68
--- NOTE | 2025-01-17 11:04 | Orthopedic Progress Note ---
Date of Service January 17, 2025 Assessment & Plan (1) Status post right partial knee replacement: Plan: 84-year-old gentleman postop day 1 from a right partial knee replacement doing well. Pains controlled. He is neurologically intact. Get around quite well. Plan: 1. DVT prophylaxis including thigh-high teds, SCDs, aspirin twice a day. 2. PT/OT. Weight-bear as taught. Right total knee protocol. 3. Pain control. Doing well with current pain regimen. Really not have much pain at all. 4. Disposition. Plan is to discharge to home with some home health after therapy today. Admission and Anticipated Discharge Date Admission Date: January 16, 2025 Subjective 84-year-old gentleman postop day 1 from a right partial knee replacement. He is doing well. Really not have much pain at all. These been up walking around his room by himself without much of a problem. No chest pain or shortness of breath. Not feeling dizzy or lightheaded. Physical Exam Physical Exam: Physical nation was a pleasant elderly male. He is ambulate around his room this morning quite well. Examination of the right leg reveals the dressing be clean dry and intact. Is got good alignment to the knee. He can do a good straight leg raise. Can dorsiflex and plantarflex his foot appropriately. He is neurologically intact. Respiratory: normal respiratory effort, lungs clear to auscultation Cardiovascular: RRR, no murmur, no edema Gastrointestinal (Abdomen): normal bowel sounds, soft, nontender, no hepatosplenomegaly Results & Data Vital Signs (Past 12 Hours) Vital Signs Temp Pulse Pulse Resp BP Pulse Ox O2 Del Method 01/17/25 09:47 36.3 C L 65 68 18 114/58 L 93 01/17/25 07:29 36.3 C L 65 18 114/58 L 93 Room Air 01/17/25 03:00 36.7 C 68 18 114/58 L 94 Room Air Laboratory Results Hemoglobin is 11.6. Hematocrit is 32.4. Electrolytes are stable. Creatinine elevated but at baseline.
== END 2025-01-17 11:22 | disposition home health service (06) ==
LOC: 3W 04:59 → ASU 04:59